=== PATIENT | male | born 1940 | race Caucasian/White ===

== ENCOUNTER 2021-04-03 13:59 | Outpatient (CLI) | payer MEDICARE | END 2021-04-03 14:00 | disposition home or self-care (01) | LOC: CSHMRI 13:59 | PROVIDERS: ATTEND Psychiatry & Neurology Neurology | DX: I63.9 Cerebral infarction, unspecified (principal); I65.29 Occlusion and stenosis of unspecified carotid artery; R90.82 White matter disease, unspecified | CPT/HCPCS: 70553; 82565; 93880 ==